=== PATIENT | female | born 1965 | race Caucasian/White ===

== ENCOUNTER 2017-03-17 14:04 | Emergency (ER) | payer MEDICAID, OTHER ==
[~2017-03-17] VITALS: Ht 154.9 cm; Wt 68.4 kg
[~2017-03-17 14:04] MED LIST: DIPH25TA41 PO; HYDR2TAB29 PO; IBUP-1222 PO
[2017-03-17 14:06] VITALS: BP 147/91
[2017-03-17] MEDS ORDERED: METHOCARBAMOL 750 MG TABLET PO ONE (16:00)
[2017-03-17] MEDS ORDERED: METHOCARBAMOL 750 MG TABLET ONE (16:03)
== END 2017-03-17 16:49 | disposition home or self-care (01) ==
LOC: ED 16:20
DX: S16.1XXA Strain of muscle, fascia and tendon at neck level, initial encounter (principal); G89.11 Acute pain due to trauma; M79.644 Pain in right finger(s); R07.9 Chest pain, unspecified; V49.59XA Passenger injured in collision with other motor vehicles in traffic accident, initial encounter; Y93.89 Activity, other specified; Y92.488 Other paved roadways as the place of occurrence of the external cause; Y99.8 Other external cause status
CPT/HCPCS: 99284

== ENCOUNTER 2017-03-22 13:29 | Emergency (ER) | payer MEDICAID, OTHER ==
[~2017-03-22] VITALS: Ht 154.9 cm; Wt 72.2 kg
[2017-03-22] MEDS ORDERED: KETOROLAC 30 MG/1 ML ONE (14:22)
[2017-03-22] MEDS ORDERED: METOCLOPRAMIDE 5 MG/ML, 2ML ONE (14:22)
[2017-03-22] MEDS ORDERED: DIPHENHYDRAMINE 50 MG/ML, 1ML ONE (14:22)
[2017-03-22] MEDS ORDERED: DIPHENHYDRAMINE 50 MG/ML, 1ML IVPush ONE (14:30)
[2017-03-22] MEDS ORDERED: SODIUM CHLORIDE FLUSH 10ML SYR IVF ONE (14:30)
[2017-03-22] MEDS ORDERED: METOCLOPRAMIDE 5 MG/ML, 2ML IVPush ONE (14:30)
[2017-03-22] MEDS ORDERED: SODIUM CHLORIDE 0.9% 1,000ML IVBOLUS ONE (14:30)
[2017-03-22] MEDS ORDERED: KETOROLAC 30 MG/1 ML IVPush ONE (14:30)
[2017-03-22 15:39] VITALS: BP 150/84
== END 2017-03-22 15:44 | disposition home or self-care (01) ==
LOC: ED 15:20
DX: S63.641A Sprain of metacarpophalangeal joint of right thumb, initial encounter (principal); R51 Headache; X58.XXXA Exposure to other specified factors, initial encounter; Y93.89 Activity, other specified; Y99.8 Other external cause status; Y92.89 Other specified places as the place of occurrence of the external cause
CPT/HCPCS: 29125; 96374; 96375; 99284; J1200; J1885; J2765; J7030

== ENCOUNTER 2017-04-18 07:16 | Emergency (ER) | payer MEDICAID ==
[~2017-04-18] VITALS: Ht 154.9 cm; Wt 73.8 kg
[2017-04-18] MEDS ORDERED: morphine SULFATE 10 MG/ML, 1ML ONE (07:45)
[2017-04-18] MEDS ORDERED: ONDANSETRON 2MG/ML, 2ML ONE (07:45)
[2017-04-18] MEDS ORDERED: morphine SULFATE 10 MG/ML, 1ML IVPush ONE (08:00)
[2017-04-18] MEDS ORDERED: ONDANSETRON 2MG/ML, 2ML IVPush ONE (08:00)
[2017-04-18 09:36] VITALS: BP 136/91
== END 2017-04-18 09:37 | disposition home or self-care (01) ==
LOC: ED 07:49
DX: M54.41 Lumbago with sciatica, right side (principal); Z88.2 Allergy status to sulfonamides; Z88.1 Allergy status to other antibiotic agents; Z90.710 Acquired absence of both cervix and uterus
CPT/HCPCS: 96374; 96375; 99284; J2270; J2405

== ENCOUNTER 2017-05-03 13:02 | Emergency (ER) | payer MEDICAID ==
[~2017-05-03] VITALS: Ht 154.9 cm; Wt 72.0 kg
[2017-05-03] MEDS ORDERED: ACETAMINOPHEN 500 MG TABLET PO ONE (13:30)
[2017-05-03] MEDS ORDERED: PHENAZOPYRIDINE 200 MG TABLET PO ONE (13:30)
[2017-05-03] MEDS ORDERED: PHENAZOPYRIDINE 200 MG TABLET ONE (13:57)
[2017-05-03] MEDS ORDERED: ACETAMINOPHEN 500 MG TABLET ONE (13:58)
[2017-05-03 14:24] VITALS: BP 145/87
== END 2017-05-03 14:26 | disposition home or self-care (01) ==
LOC: ED 13:47
DX: N30.01 Acute cystitis with hematuria (principal); M54.41 Lumbago with sciatica, right side; Z90.710 Acquired absence of both cervix and uterus
CPT/HCPCS: 81001; 87077; 87086; 87186; 99284

== ENCOUNTER 2017-05-21 07:39 | Emergency (ER) | payer MEDICAID ==
[~2017-05-21] VITALS: Ht 154.9 cm; Wt 71.0 kg
[2017-05-21] MEDS ORDERED: HYDROcodone/APAP 5/325 TABLET ONE (08:20)
[2017-05-21] MEDS ORDERED: KETOROLAC 30 MG/1 ML ONE (08:20)
[2017-05-21] MEDS: KETOROLAC 30 MG/1 ML IM ONE (08:30)
[2017-05-21] MEDS: HYDROcodone/APAP 5/325 TABLET PO ONE (08:30)
[2017-05-21 08:33] LABS: HEMATOCRIT 42.3 % (34.6-47.8); WHITE BLOOD COUNT 5.4 x10^3/uL (3.4-10)
[2017-05-21 08:40] LABS: BLOOD UREA NITROGEN 19 mg/dL (7-18)
[2017-05-21 09:55] VITALS: BP 154/87
== END 2017-05-21 09:58 | disposition home or self-care (01) ==
LOC: ED 09:52
DX: N30.00 Acute cystitis without hematuria (principal); M54.41 Lumbago with sciatica, right side; M19.90 Unspecified osteoarthritis, unspecified site
CPT/HCPCS: 36415; 80048; 81001; 82040; 84703; 85025; 87077; 87086; 96372; 99284; J1885; 87186

== ENCOUNTER 2017-08-17 20:14 | Emergency (ER) | payer MEDICAID ==
[~2017-08-17] VITALS: Ht 152.4 cm; Wt 76.4 kg
[2017-08-17 20:15] VITALS: BP 147/91
[2017-08-17] MEDS ORDERED: KETOROLAC 30 MG/1 ML ONE (21:21)
[2017-08-17] MEDS ORDERED: METHOCARBAMOL 750 MG TABLET ONE (21:21)
[2017-08-17] MEDS ORDERED: METHOCARBAMOL 750 MG TABLET PO ONE (21:30)
[2017-08-17] MEDS ORDERED: KETOROLAC 30 MG/1 ML IM ONE (21:30)
== END 2017-08-17 22:56 | disposition home or self-care (01) ==
LOC: ED 21:52
DX: S13.4XXA Sprain of ligaments of cervical spine, initial encounter (principal); S33.5XXA Sprain of ligaments of lumbar spine, initial encounter; M19.90 Unspecified osteoarthritis, unspecified site; W01.0XXA Fall on same level from slipping, tripping and stumbling without subsequent striking against object, initial encounter; Y93.89 Activity, other specified; Y92.098 Other place in other non-institutional residence as the place of occurrence of the external cause; Y99.8 Other external cause status; Z90.710 Acquired absence of both cervix and uterus; M51.36 Other intervertebral disc degeneration, lumbar region
CPT/HCPCS: 72050; 72110; 96372; 99284; J1885

== ENCOUNTER 2017-09-30 10:04 | Emergency (ER) | payer SELFPAY ==
[~2017-09-30] VITALS: Ht 154.9 cm; Wt 75.0 kg
[2017-09-30] MEDS ORDERED: ASPIRIN 81 MG TABLET CHEW ONE (10:59)
[2017-09-30] MEDS ORDERED: SODIUM CHLORIDE FLUSH 10ML SYR IVF ONE (11:00)
[2017-09-30] MEDS ORDERED: ASPIRIN 81 MG TABLET CHEW PO ONE (11:00)
[2017-09-30] MEDS ORDERED: ONDANSETRON 2MG/ML, 2ML IVPush ONE (11:00)
[2017-09-30] MEDS ORDERED: NITROGLYCERIN SINGLE TAB 0.4 MG SL PRN (11:00)
[2017-09-30] MEDS ORDERED: NITROGLYCERIN SINGLE TAB 0.4 MG SL ONE (11:02)
[2017-09-30 11:22] LABS: MICROSCOPIC INDICATED
[2017-09-30 11:23] LABS: BASOPHILS # (AUTO) 0.02 x10^3/uL (0-0.1); BASOPHILS % (AUTO) 1 % (0-1); EOSINOPHILS # (AUTO) 0.14 x10^3/uL (0-0.4); EOSINOPHILS % (AUTO) 3 % (1-7); LYMPHOCYTES % (AUTO) 34 % (22-44); MD NO; MEAN CORPUSCULAR HEMOGLOBIN 28.4 pg (27.0-34.8); MEAN CORPUSCULAR HGB CONC 33.2 g/dL (32.4-35.8); MEAN CORPUSCULAR VOLUME 85.5 fL (80-100); MONOCYTES # (AUTO) 0.41 x10^3/uL (0.2-0.8); MONOCYTES % (AUTO) 9 % (2-9); NEUTROPHILS # (AUTO) 2.41 x10^3/uL (1.8-6.8); NEUTROPHILS % (AUTO) 54 % (42-75); PLATELET COUNT 233 x10^3/uL (130-400); RED BLOOD COUNT 5.12 x10^6/uL (3.82-5.3); RED CELL DISTRIBUTION WIDTH 12.8 % (9.6-15.2)
[2017-09-30 11:33] LABS: ALBUMIN 3.2 g/dL (3.4-5.0); ANION GAP 11 mmol/L (5-15); CHLORIDE 110 mmol/L (98-107)
[2017-09-30 11:38] LABS: ALANINE AMINOTRANSFERASE 38 U/L (12-78); ALKALINE PHOSPHATASE 113 U/L (45-117); BILIRUBIN,TOTAL 0.3 mg/dL (0.2-1.0); CREATININE 0.95 mg/dL (0.55-1.02); TROPONIN I 0.027 ng/mL (0.000-0.045)
[2017-09-30] MEDS ORDERED: ONDANSETRON ODT 4 MG ONE (11:55)
[2017-09-30] MEDS ORDERED: MORPHINE SULFATE 4 MG/ML, 1ML ONE (11:55)
[2017-09-30] MEDS ORDERED: ONDANSETRON ODT 4 MG PO ONE (12:00)
[2017-09-30] MEDS ORDERED: MORPHINE SULFATE 4 MG/ML, 1ML IVPush PRN (12:00)
[2017-09-30 12:03] LABS: CULTURE INDICATED? YES
[2017-09-30] MEDS ORDERED: MECLIZINE CHEWABLE 25 MG TAB PO ONE (13:00)
[2017-09-30] MEDS ORDERED: MECLIZINE CHEWABLE 25 MG TAB ONE (13:11)
[2017-09-30 14:28] VITALS: BP 131/74
== END 2017-09-30 14:30 | disposition home or self-care (01) ==
LOC: ED 13:59
DX: N30.90 Cystitis, unspecified without hematuria (principal); R42 Dizziness and giddiness; B34.9 Viral infection, unspecified
CPT/HCPCS: 36415; 71045; 80053; 81001; 83880; 84484; 85025; 87086; 93005; 96374; 99285; Q0162

== ENCOUNTER 2017-11-21 05:56 | Emergency (ER) | payer OTHER ==
[~2017-11-21] VITALS: Ht 154.9 cm; Wt 72.2 kg
[2017-11-21 06:02] VITALS: BP 144/96
[2017-11-21] MEDS ORDERED: ONDANSETRON ODT 4 MG ONE (06:34)
[2017-11-21 08:14] LABS: BASOPHILS # (AUTO) 0.02 x10^3/uL (0-0.1); BASOPHILS % (AUTO) 0 % (0-1); EOSINOPHILS # (AUTO) 0.09 x10^3/uL (0-0.4); EOSINOPHILS % (AUTO) 1 % (1-7); LYMPHOCYTES % (AUTO) 16 % (22-44); MD NO; MEAN CORPUSCULAR HEMOGLOBIN 28.4 pg (27.0-34.8); MEAN CORPUSCULAR HGB CONC 33.3 g/dL (32.4-35.8); MEAN CORPUSCULAR VOLUME 85.1 fL (80-100); MEAN PLATELET VOLUME 8.6 fL (7.4-10.4); MONOCYTES # (AUTO) 0.62 x10^3/uL (0.2-0.8); MONOCYTES % (AUTO) 8 % (2-9); NEUTROPHILS # (AUTO) 5.51 x10^3/uL (1.8-6.8); NEUTROPHILS % (AUTO) 74 % (42-75); PLATELET COUNT 249 x10^3/uL (130-400); RED BLOOD COUNT 5.59 x10^6/uL (3.82-5.3); RED CELL DISTRIBUTION WIDTH 13.1 % (9.6-15.2)
[2017-11-21 08:28] LABS: ALBUMIN 3.6 g/dL (3.4-5.0); ANION GAP 6 mmol/L (5-15); CALCIUM 8.9 mg/dL (8.5-10.1); CHLORIDE 107 mmol/L (98-107)
[2017-11-21 08:32] LABS: ALANINE AMINOTRANSFERASE 43 U/L (12-78); ALKALINE PHOSPHATASE 118 U/L (45-117); BILIRUBIN,TOTAL 0.5 mg/dL (0.2-1.0); CREATININE 0.79 mg/dL (0.55-1.02); TOTAL PROTEIN 7.9 g/dL (6.4-8.2)
== END 2017-11-21 09:44 | disposition home or self-care (01) ==
LOC: ED 08:36
DX: R19.7 Diarrhea, unspecified (principal); R10.84 Generalized abdominal pain
CPT/HCPCS: 36415; 80053; 83690; 85025; 99284

== ENCOUNTER 2020-02-28 13:38 | Emergency (ER) | payer MEDICAID, OTHER ==
[~2020-02-28] VITALS: Ht 154.9 cm; Wt 79.8 kg
[2020-02-28 13:41] VITALS: BP 140/85
--- NOTE | 2020-02-28 14:11 | NUR ---
edmd at bedside evaluating at this time.
[2020-02-28] MEDS ORDERED: HYDROcodone/APAP 10/325 MG TABLET ONE (14:13)
--- NOTE | 2020-02-28 14:15 | NUR ---
PT MEDICATED PER EMAR. PT TOLERATED WELL.
[2020-02-28] MEDS ORDERED: HYDROcodone/APAP 10/325 MG TABLET PO ONE (14:30)
--- NOTE | 2020-02-28 14:34 | NUR ---
Patient given discharge instructions and they have confirmed that they understand the instructions. Patient ambulatory with steady gait.
== END 2020-02-28 14:35 | disposition home or self-care (01) ==
LOC: ED 14:28
DX: M54.5 Low back pain (principal); G89.29 Other chronic pain
CPT/HCPCS: 99283

== ENCOUNTER 2020-03-06 23:51 | Emergency (ER) | payer MEDICAID ==
[~2020-03-06] VITALS: Ht 154.9 cm; Wt 78.0 kg
[2020-03-07] VITALS: BP 146/84
[2020-03-07] MEDS ORDERED: METHOCARBAMOL 750 MG TABLET ONE (00:27)
[2020-03-07] MEDS ORDERED: HYDROcodone/APAP 10/325 MG TABLET ONE (00:28)
[2020-03-07] MEDS ORDERED: METHOCARBAMOL 750 MG TABLET PO ONE (00:30)
[2020-03-07] MEDS ORDERED: HYDROcodone/APAP 10/325 MG TABLET PO ONE (00:30)
--- NOTE | 2020-03-07 00:44 | NUR ---
Break RN: medicated patient per jul. Discharge instructions given. All questions and concerns addressed. Patient ambulatory with a steady gait. Belongings with patient.
== END 2020-03-07 00:46 | disposition home or self-care (01) ==
LOC: ED 03-07 00:25
DX: M54.41 Lumbago with sciatica, right side (principal); I10 Essential (primary) hypertension; F17.200 Nicotine dependence, unspecified, uncomplicated; M19.90 Unspecified osteoarthritis, unspecified site; Z90.710 Acquired absence of both cervix and uterus
CPT/HCPCS: 99283